=== PATIENT | female | born 1985 | race Caucasian/White ===

== ENCOUNTER 2017-06-26 21:11 | Emergency (ER) | payer MEDICAID ==
[~2017-06-26] VITALS: Ht 157.5 cm; Wt 81.6 kg
[2017-06-26 21:11] VITALS: BP_SYST 109
[2017-06-26] MEDS ORDERED: IPRATROPIUM/ALBUTEROL SULFATE 3 ML AMPUL.NEB INH ONE (22:45)
[2017-06-26] MEDS ORDERED: methylPREDNISolone SOD SUCC/PF 62.5 MG/ML VIAL IM ONE (22:45)
[2017-06-27 01:00] VITALS: BP_SYST 118
== END 2017-06-27 01:00 | disposition home or self-care (01) ==
LOC: SED 21:11
DX: J45.909 Unspecified asthma, uncomplicated (principal)
CPT/HCPCS: 36415; 71045; 86710; 94640; 96372; 99285; J2930

== ENCOUNTER 2019-04-08 20:53 | Emergency (ER) | payer MEDICAID ==
[~2019-04-08] VITALS: Ht 157.5 cm; Wt 83.9 kg
[2019-04-08 21:10] VITALS: BP_SYST 129
--- NOTE | 2019-04-08 21:25 | NUR ---
Provided with urine cup for urine sample collection
--- NOTE | 2019-04-08 22:01 | NUR ---
Pt ambulatory to bed 3 for evaluation
--- NOTE | 2019-04-08 22:03 | NUR ---
Patient complains of body aches, headache, cough and abdominal pain since Wednesday. Pt states that she has little ones at home that are sick with the flu. Pt states that she has experienced diarrhea and vomiting over the last few days. Pt also reports that she felt the "chills" but had not been able to check her temperature. No other injuries/complaints per patient or noted.
--- NOTE | 2019-04-08 22:04 | NUR ---
ER Dr. Ann at bedside examining patient.
[2019-04-08 22:28] LABS: BILIRUBIN,URINE 1+ (NEGATIVE); BLOOD, URINE 3+ (NEGATIVE); CLARITY/URINE SL CLOUDY (CLEAR); COLOR,URINE YELLOW (YELLOW); GLUCOSE,URINE NEGATIVE (NEGATIVE); KETONES,URINE 3+ (NEGATIVE); LEUKOCYTE ESTERASE ,URINE NEGATIVE (NEGATIVE); NITRITE, URINE NEGATIVE (NEGATIVE); PH,URINE 6.5 (5.0-8.0); PROTEIN URINE 2+ (NEGATIVE); UROBILINOGEN,URINE 0.2 (0.2-1.0)
[2019-04-08] MEDS ORDERED: KETOROLAC TROMETHAMINE 15 MG VIAL IVP ONE (22:30)
[2019-04-08] MEDS ORDERED: MORPHINE 2 MG/ML INJ. SYRINGE IVP ONE (22:30)
[2019-04-08] MEDS ORDERED: ONDANSETRON HCL 4 MG/2 ML VIAL IVP ONE (22:30)
[2019-04-08] MEDS ORDERED: NACL 0.9% 1,000 ML IV ONE (22:30)
[2019-04-08 22:32] LABS: RBC,URINE 20-50 /HPF (0-3)
[2019-04-08 22:33] LABS: BACTERIA,URINE MODERATE /HPF (None Seen); WBC,URINE 0-3 /HPF (0-3)
--- NOTE | 2019-04-08 22:34 | NUR ---
Lab at bedside obtainin blood. Pt tolerated well.
--- NOTE | 2019-04-08 22:36 | NUR ---
Patient verbalized that she does not want an IV and fluids. Pt states "I have 3 little ones at home who are sick and was diagnosed with the flu. So I just want to make sure that I am able to go home and take care of them because my mother is at home alone with [address] Ann made aware.
--- NOTE | 2019-04-08 22:38 | NUR ---
Patient went to CT in stable condition
[2019-04-08 22:45] LABS: BASOPHILS % (AUTO) 0.3 % (0.0-2.0); EOSINOPHILS % (AUTO) 0.3 % (0.0-4.0); HEMATOCRIT 39.7 % (36-48); HEMOGLOBIN 13.7 g/dL (12.0-16.0); LYMPHOCYTES # (AUTO) 1.6 K/uL (1.0-5.5); LYMPHOCYTES % (AUTO) 29.6 % (20.5-51.5); MEAN CORPUSCULAR HEMOGLOBIN 31 pg (27-31); MEAN CORPUSCULAR HGB CONC 35 % (32-36); MEAN CORPUSCULAR VOLUME 89 fL (79.0-98.0); MONOCYTES # (AUTO) 0.7 K/uL (0.0-1.0); MONOCYTES % (AUTO) 12.5 % (1.7-9.3); NEUTROPHILS % (AUTO) 57.3 % (40.0-70.0); PLATELET COUNT (AUTO) 210 K/uL (130-430); RED BLOOD CELL COUNT(AUTO) 4.46 MIL/uL (4.2-6.2); RED CELL DISTRIBUTION WIDTH 14.2 % (9.0-15.0); WHITE BLOOD COUNT (AUTO) 5.3 K/uL (4.8-10.8)
--- NOTE | 2019-04-08 22:46 | NUR ---
patient returned from CT in stable condition.
--- NOTE | 2019-04-08 22:56 | NUR ---
Patient refused antiemetic and pain medication, stating "i'm okay right now." Dr. Ann made aware.
[2019-04-08 23:37] LABS: INFLUENZA A&B ANTIGEN SCREEN NEGATIVE FOR A & B (NEGATIVE)
[2019-04-08 23:43] LABS: CALCIUM 8.1 mg/dL (8.4-11.0); CREATININE 0.74 mg/dL (0.55-1.30); POTASSIUM 3.1 mmol/L (3.5-5.1)
[2019-04-08 23:45] LABS: ALBUMIN 3.6 g/dL (3.4-4.8); TOTAL BILIRUBIN 0.4 mg/dL (0.0-1.0)
--- NOTE | 2019-04-09 00:36 | NUR ---
ER Dr. Ann at bedside explaining results to patient.
[2019-04-09] MEDS ORDERED: POTASSIUM CHLORIDE 20 MEQ TAB.PRT.SR PO ONE (00:45)
[2019-04-09 01:05] VITALS: BP_SYST 122
--- NOTE | 2019-04-09 01:05 | NUR ---
Patient given written and verbal discharge instructions and verbalizes understanding. ER MD discussed with patient the results and treatment provided. Patient in stable condition. ID arm band removed. Rx of [place], Zofran, Zithromax, Albuterol given. Patient educated on pain management and to follow up with PMD. Pain Scale 0. Opportunity for questions provided and answered. Medication side effect fact sheet provided.
== END 2019-04-09 01:05 | disposition home or self-care (01) ==
LOC: SED 20:53
DX: R11.10 Vomiting, unspecified (principal); R19.7 Diarrhea, unspecified; M79.10 Myalgia, unspecified site; R10.9 Unspecified abdominal pain; R05 Cough; R50.9 Fever, unspecified
CPT/HCPCS: 36415; 71045; 80053; 81000-TC; 81025; 82550-TC; 83605; 84484; 84703; 85025; 86710; 87040-TC; 87086; 93005; 99284